=== PATIENT | female | born 1970 | race Caucasian/White ===

== ENCOUNTER 2020-11-06 06:54 | Day surgery (SDC) | payer BC ==
[~2020-11-06] VITALS: Ht 157.5 cm; Wt 83.3 kg
[~2020-11-06 06:54] MED LIST: BUPR150ER PO; Cardizem LA120 MG PO; Estradiol0.5 MG PO; FAMO20 PO; LORA.5; OMEP20ER PO
== END 2020-11-06 09:07 | disposition home or self-care (01) ==
LOC: ORSCSDS 06:54
PROVIDERS: Surgery
PROC: 0DJD8ZZ Inspection of Lower Intestinal Tract, Via Natural or Artificial Opening Endoscopic (ICD-10-PCS; principal; 2020-11-06 08:00)
PROC: 0DB98ZX Excision of Duodenum, Via Natural or Artificial Opening Endoscopic, Diagnostic (ICD-10-PCS; 2020-11-06 08:00)
DX: K21.9 Gastro-esophageal reflux disease without esophagitis (principal); Z12.11 Encounter for screening for malignant neoplasm of colon; F41.8 Other specified anxiety disorders; K29.80 Duodenitis without bleeding; K64.4 Residual hemorrhoidal skin tags; E78.5 Hyperlipidemia, unspecified; E66.9 Obesity, unspecified; Z68.34 Body mass index [BMI] 34.0-34.9, adult; F17.210 Nicotine dependence, cigarettes, uncomplicated; Z79.899 Other long term (current) drug therapy
CPT/HCPCS: 43239; G0121; 88305; J0461; J2405; J2704; J7120